=== PATIENT | male | born 1945 | race Caucasian/White ===

== ENCOUNTER → 2020-04-08 | Outpatient (CLI) | payer MEDICARE, OTHER ==
[~2020-04-08] MED LIST: ACET500T68 PO
--- NOTE | 2020-04-08 11:59 | PDOC2 ---
INITIAL PAIN CONSULT DATE OF SERVICE: DOS: DATE: 04/08/20 TIME: 11:50 CHIEF COMPLAINT: Chief Complaint: Neck and bilateral upper extremity pain Low back and left greater than right lower extremity pain HISTORY OF PRESENT ILLNESS: 74-year-old male presents with history of pain in the base the neck and shoulders bilaterally as well as the low back and left greater than right lower extremity with numbness in the feet. Patient reports is been going on for "many years" at least 15. Patient reports he had MRI scan lumbar spine about 15 years ago which showed a lumbar bulging disc on the left by his recollection. More recently, patient has had significant pain base the neck and shoulders which he reports has resolved completely about 3 weeks ago. Patient is seen his primary care physician ordered an MRI scan of the cervical spine which revealed reviewed with he and his family today showing some fairly significant stenosis at multiple levels with degenerative disc disease broad-based disc bulge C3-4 additional degenerative changes resulting moderate central canal narrowing and multi-level foraminal narrowing C5-6 and C6-7. Patient reports his pain is been gone however for the past 3 weeks prior to that it was a stabbing and throbbing and shooting and is fairly severe keeping him awake from sleep at night but over the past few weeks he is not been having any pain whatsoever by his report. Patient reports he does not awaken from sleep at night but does have some bladder issues as he self catheterization on schedule but reports he can still feel a sensation of full bladder. Patient has had no previous treatment for this he takes Tylenol for pain when he needs it but has not had any recently. In discussion with his spouse and daughter both present today he is off balance fairly significantly and reports he has been for a long time as well using a cane to ambulate in his right hand and he has an antalgic gait when examined. He reports he has a follow-up appointment with a new urologist in the urology group he is seen previously, it has not been scheduled yet. I encouraged him to schedule this soon. PAST MEDICAL HISTORY: PMH: Hypertension, hearing loss, difficulty urinating with self-catheterization, depression, concussions, renal insufficiency PREVIOUS SURGERIES: Past Surgical Hx: Cholecystectomy, hernia repair, skin biopsies, tonsillectomy and adenoidectomy, lower leg tumor excision CURRENT MEDICATIONS: Current Meds: Active Scripts Medications Dose Route/Sig Max Daily Dose Days Date Category Acetaminophen 500 Mg Tablet 1 Tab PO PRN Q6HRS PRN 15 04/08/20 Reported ALLERGIES; Allergies: Coded Allergies: No Known Drug Allergies (Unverified , 04/08/20) FAMILY HISTORY: Family Hx: Kidney disease and neuropathy SOCIAL HISTORY: Social Hx: Patient does not drink alcohol does not smoke not use any illegal illicit or recreational drugs is lives with his spouse and lives in [facility], and is currently retired. REVIEW OF SYSTEMS: ROS: Positive for those items mentioned in history of present illness, is complete full and well-documented on patient's chart. All other systems are negative. PHYSICAL EXAM: VS: Blood pressure 167/88 pulse 79 respirations 18 temperature 98.2 F height 6 foot 1 inches weight is 2 1 6 pounds PE: PHYSICAL EXAMINATION: GENERAL: The patient is awake, alert, oriented, appropriate, very pleasant demeanor, company by his spouse and daughter. HEENT: Shows normocephalic, atraumatic. Extraocular movements are intact and symmetrical. Oral cavity: Mucous membranes moist and pink. NECK: Shows anterior throat supple without palpable lymphadenopathy noted. Swallow reflex symmetrical. CHEST: Shows normal on inspection. Breath sounds are clear bilaterally, distant but without rales rhonchi or wheezes auscultated. HEART: Shows S1, S2 clear. No murmurs auscultated. ABDOMEN: Soft, nontender, nondistended. No palpable organomegaly is noted. No rebound or guarding demonstrated. BACK: Shows spine grossly in the midline. Normal-appearing cervical lordotic curvature, patient shows full rotation motion cervical spine both laterally greater than 45 degrees right and left was all full extension full forward flexion without significant difficulty, paraspinous muscular shows symmetrical on inspection with palpation some very mild tenderness in the middle and lower distribution the paraspinous muscles but without atrophy hypertrophy no asymmetry and no trigger points or radiation of pain. There is slightly increased thoracic kyphosis, some minor flattening of the lumbar lordotic curvature. Lumbar paraspinous muscles show symmetrical on inspection, on palpation shows some moderate tenderness diffusely throughout the upper, middle and lower distribution of the paraspinous muscles bilaterally and also into the lower thoracic paraspinous musculature, firm and tender, but without specific trigger points, without radiation of pain. The patient has good rotational motion of the lumbar spine, both laterally as well as extension and flexion without significant difficulty. No tenderness over the spinous processes, sacrum or sacroiliac regions. EXTREMITIES: Lower extremities show deep tendon reflexes 1 in the patellar and tendo calcaneus tendons. Motor exam is 4 on a scale of 5 with right dorsiflexion, extension, quadriceps and hamstring flexion and 4/5 on the left. Peripheral pulses are 1+ posterior tibial. No peripheral edema is noted bilaterally. Lower extremities are warm and dry to touch, equal in color and appearance. 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 Shoulder shrug strong and intact without loss of strength on resistance as is abduction of the shoulder 90 degrees without loss of strength on resistance bilaterally without pain reported bilaterally. The patient is able to stand, has difficulty raising from a seated position using the arms of the chair and also depending on a cane fairly significantly using his right hand. Patient's gait shows significant antalgic gait patient uses cane as well as hold onto the wall or chair or rails or items with his other hand as he appears unstable ambulating. SKIN: Shows warm and dry, good turgor. No edema. No sores, rashes or bruising throughout. IMPRESSION: Impression: 74-year-old male with long history of bilateral lower extremity pain and weakness numbness left greater than right Cervical pain with radiation to bilateral upper extremities now resolved MRI scan cervical spine as noted Hypertension Self-catheterization Arthritis Depression Plan: Options discussed with the patient and patient's family and recommending MRI scan lumbar spine as patient has some significant radicular quality symptoms as well as bladder dysfunction. Patient voices concern over have another MRI scan as he had 115 years ago and is not interested in pursuing this at this time. I strongly suggested to the patient's family that this be performed in 2 follow-up with the urology appointment that is upcoming as well. As patient is not having any pain in the neck or shoulders or upper extremities at this time will have patient follow-up on as-needed basis currently. ROBERTA ODONNELL MD Apr 08, 2020 11:59
== END | disposition home or self-care (01) ==
LOC: PNCL 10:05 → EDBD 10:20
PROVIDERS: ATTEND Anesthesiology
DX: M50.31 Other cervical disc degeneration, high cervical region (principal); M50.123 Cervical disc disorder at C6-C7 level with radiculopathy; M25.512 Pain in left shoulder; M25.511 Pain in right shoulder; M79.661 Pain in right lower leg; I10 Essential (primary) hypertension; F32.9 Major depressive disorder, single episode, unspecified; M19.90 Unspecified osteoarthritis, unspecified site; Z98.890 Other specified postprocedural states; Z79.899 Other long term (current) drug therapy
CPT/HCPCS: G0463